=== PATIENT | female | born 1990 | race African-American/Black ===

== ENCOUNTER 2017-07-29 06:48 | Emergency (ER) | payer SELFPAY ==
[2017-07-29 07:38] VITALS: BMI 18.6
--- NOTE | 2017-07-29 08:19 | PDOC ---
History of Present Illness - General Chief Complaint: Vaginal Sxs Stated Complaint: VAGINAL PAIN Time Seen by Provider: 07/29/17 07:47 History Source: Patient Exam Limitations: No Limitations - History of Present Illness Initial Comments: 07/29/17 08:16 27F [id number] (voluntary 2013) presents with 3 days of clear vaginal discharge and discomfort for the past 3 days. Denies dysuria, dyspareunia. Denies itchiness, soreness. One sexual partner, uses condoms consistently. Last period was July 09. No recent antibiotic use. Has had BV before last time was in January. Doesn't take any medication. 07/29/17 08:34 07/29/17 08:56 Past History - Past Medical History Allergies/Adverse Reactions: Allergies Allergy/AdvReac Type Severity Reaction Status Date / Time No Known Allergies Allergy Verified 07/29/17 07:35 Home Medications: Ambulatory Orders Metronidazole 0.75% Vag. Gel [Metrogel 0.75% Vaginal Gel -] 5 applic VG DAILY # 5 tube 07/29/17 Anemia: No Asthma: No Cancer: No Cardiac Disorders: No CVA: No COPD: No CHF: No Dementia: No Diabetes: No GI Disorders: No Disorders: No HTN: No Hypercholesterolemia: No Liver Disease: No Seizures: No Thyroid Disease: No - Surgical History Abdominal Surgery: Yes (ovarian cyst removal) Appendectomy: No Cardiac Surgery: No Cholecystectomy: No Lung Surgery: No Neurologic Surgery: No Orthopedic Surgery: No - Reproductive History (#): 1 Para: 0 Therapeutic (s) & number: Yes Spontaneous : 1 - Immunization History Immunization Up to Date: Yes - Suicide/Smoking/Psychosocial Hx Smoking Status: No Smoking History: Never smoked Have you smoked in the past 12 months: No Number of Cigarettes Smoked Daily: 0 Information on smoking cessation initiated: No Hx Alcohol Use: No Drug/Substance Use Hx: No Substance Use Type: None Hx Substance Use Treatment: No Review of Systems - Review of Systems Able to Perform ROS?: Yes Is the patient limited Congolese proficient: No Constitutional: No: Symptoms Reported HEENTM: No: Symptoms Reported Respiratory: No: Symptoms reported Cardiac (ROS): No: Symptoms Reported ABD/GI: No: Symptoms Reported : No: Burning, Dysuria, Frequency, Hematuria, Incontinence, Pain, Urgency Musculoskeletal: No: Symptoms Reported Integumentary: No: Symptoms Reported Neurological: No: Symptoms reported Psychiatric: No: Anxiety, Depression, Frequent Crying, Stressors Endocrine: No: Symptoms Reported All Other Systems: Reviewed and Negative *Physical Exam - Vital Signs Last Vital Signs Temp Pulse Resp BP Pulse Ox 98.3 F 68 16 116/72 98 07/29/17 07:36 07/29/17 07:36 07/29/17 07:36 07/29/17 07:36 07/29/17 07:36 - Physical Exam General Appearance: Yes: Nourished, Appropriately Dressed. No: Apparent Distress HEENT: positive: EOMI, SHIVANI, Normal ENT Inspection Neck: negative: Tender Respiratory/Chest: positive: Lungs Clear, Normal Breath Sounds. negative: Chest Tender Cardiovascular: positive: Regular Rhythm, Regular Rate, S1, S2 Female Pelvic Exam: positive: normal external exam, cervical os closed, normal adnexa, normal size ovaries, discharge (fishy odor, thin discharge on top of physiological leukorrhea. ). negative: vaginal bleeding Neurologic: positive: Fully Oriented, Alert, Normal Mood/Affect, Normal Response , Motor Strength 5/5 Medical Decision Making - Medical Decision Making 07/29/17 08:47 27F with no pmh and vaginal discomfort, malodorous smell. Pelvic exam performed. Bacterial vaginosis very likely due to malodorous discharge and presentation. Yeast infection unlikely: no foamy white discharge, no itchiness. UA and Upreg pending. Gono and Chlamydia Pending Patient denies HIV testing at this time, will get full physical soon when new insurance kicks in. Secnidazole treatment no available, will treat with metrodinazole. Counseled the patient on using probiotic treatment in addition to metrodinazole to avoid developing yeast infection. . 07/29/17 08:48 *DC/Admit/Observation/Transfer Diagnosis at time of Disposition: BV (bacterial vaginosis) - Discharge Dispostion Disposition: HOME Admit: No - Prescriptions Prescriptions: Metronidazole 0.75% Vag. Gel [Metrogel 0.75% Vaginal Gel -] 5 applic VG DAILY # 5 tube - Referrals Referrals: Katty Lund [Primary Care Provider] - - Patient Instructions Printed Discharge Instructions: DI for Bacterial Vaginosis Additional Instructions: Use metrodinazole cream once a day for 5 days. Use with probiotic to avoid developing yeast infection. Follow up with your primary doctor or OBGYN this week. Come back to Emergency Department for any new, worsening or concerning symptom like abdominal pain, difficulty, burning or painful urination or or if symptoms persist longer than a week. - Post Discharge Activity
--- NOTE | 2017-07-29 09:01 | PDOC ---
Attending Attestation - Resident Resident Name: Andrei Tavares - ED Attending Attestation I have performed the following: I have examined & evaluated the patient, The case was reviewed & discussed with the resident, I agree w/resident's findings & plan, Exceptions are as noted - HPI HPI: 07/29/17 08:57 27F presents with 3 days of white vaginal discharge and discomfort for the past 3 days. Denies abdominal pain, dysuria, dyspareunia, itchiness, soreness. One sexual partner, always uses condoms. LMP 07/09. No recent antibiotic use. Pt reports hx BV and states this feels similar. Denies CP, SOB, fevers, chills. - Physicial Exam PE: 07/29/17 09:00 GENERAL: Awake, alert, and fully oriented, in no acute distress HEAD: No signs of trauma EYES: PERRLA, EOMI, sclera anicteric, conjunctiva clear ENT: Auricles normal inspection, hearing grossly normal, nares patent, oropharynx clear without exudates. Moist mucosa NECK: Normal ROM, supple, no lymphadenopathy, JVD, or masses LUNGS: Breath sounds equal, clear to auscultation bilaterally. No wheezes, and no crackles HEART: Regular rate and rhythm, normal S1 and S2, no murmurs, rubs or gallops ABDOMEN: Soft, nontender, normoactive bowel sounds. No guarding, no rebound. No masses SOCK EXAMINER: agree with resident exam EXTREMITIES: Normal range of motion, no edema. No clubbing or cyanosis. No cords, erythema, or tenderness NEUROLOGICAL: Normal speech, cranial nerves intact, negative pronator drift, 5/ 5 strength in all 4 extremities, normal sensation to light touch in all 4 extremities, normal cerebellar exam, normal gait, normal reflexes and tone SKIN: Warm, Dry, normal turgor, no rashes or lesions noted. - Medical Decision Making 07/29/17 09:00 27-year-old female presents with likely bacterial vaginosis. Will treat and discharge with follow-up with SOCK EXAMINER.
[2017-07-29] MEDS ORDERED: metroNIDAZOLE 0.75% VAGINAL GEL 70 GM TUBE VG ONE (09:14)
[2017-07-29 09:35] LABS: URINE APPEARANCE CLOUDY; URINE BILIRUBIN NEGATIVE (NEGATIVE); URINE BLOOD NEGATIVE (NEGATIVE); URINE COLOR YELLOW; URINE GLUCOSE (UA) NEGATIVE (NEGATIVE); URINE KETONE NEGATIVE (NEGATIVE); URINE NITRITE NEGATIVE (NEGATIVE); URINE PROTEIN NEGATIVE (NEGATIVE); URINE UROBILINOGEN NEGATIVE mg/dL (0.2-1.0)
[2017-07-29 09:59] VITALS: BP 115/56; PULSE 75; TEMP 97.8
[2017-07-29 11:54] LABS: URINE LEUK ESTERASE 1+ (NEGATIVE)
[2017-07-29 12:09] LABS: URINE BACTERIA MODERATE /hpf (NEGATIVE); URINE RBC 0-3 /hpf (0-3)
== END 2017-07-29 09:59 | disposition home or self-care (01) ==
LOC: JER 06:48
DX: N76.0 Acute vaginitis (principal); B96.89 Other specified bacterial agents as the cause of diseases classified elsewhere
CPT/HCPCS: 36415; 81003; 81015; 84703; 87491; 87591; 99282-25

== ENCOUNTER 2017-12-28 21:40 | Emergency (ER) | payer SELFPAY ==
--- NOTE | 2017-12-28 21:56 | PDOC ---
Rapid Medical Evaluation Time Seen by Provider: 12/28/17 21:52 Medical Evaluation: Allergies Allergy/AdvReac Type Severity Reaction Status Date / Time No Known Allergies Allergy Verified 07/29/17 07:35 12/28/17 21:52 I have performed a brief in-person evaluation of this patient. The patient presents with a chief complaint of: breasts sore, "unusual discharge , clearish, white", RLQ pain, LMP 3 weeks ago, "feels like a UTI". hx L ovarian cyst removal Pertinent physical exam findings: well appearing, VSS, no tenderness to lower abdomen I have ordered the following: urine, ct/gc The patient will proceed to the ED for further evaluation. Discharge Disposition - Diagnosis Suprapubic discomfort - Referrals - Patient Instructions - Post Discharge Activity
[2017-12-28 22:01] VITALS: BP 120/52; PULSE 89; TEMP 98.3; BMI 18.2
[2017-12-28 23:10] LABS: URINE APPEARANCE SLCLOUDY; URINE BILIRUBIN NEGATIVE (<2.0 mg/dL); URINE BLOOD NEGATIVE (NEGATIVE); URINE COLOR LTYELLOW; URINE GLUCOSE (UA) NEGATIVE (NEGATIVE); URINE KETONE NEGATIVE (NEGATIVE); URINE NITRITE NEGATIVE (NEGATIVE); URINE PROTEIN NEGATIVE (NEGATIVE); URINE UROBILINOGEN NEGATIVE mg/dL (0.2-1.0)
[2017-12-28 23:12] LABS: URINE LEUK ESTERASE 3+ (NEGATIVE)
[2017-12-28 23:14] LABS: EPI CELLS RARE /HPF (FEW); URINE BACTERIA RARE /hpf (NONE SEEN); URINE MUCUS RARE
[2017-12-29] MEDS ORDERED: CEPHALEXIN MONOHYDRATE 500 MG CAPSULE (UD) PO ONE (00:06)
[2017-12-29] MEDS ORDERED: metroNIDAZOLE 250 MG TABLET PO ONE (00:06)
[2017-12-29] MEDS ORDERED: FLUCONAZOLE 50 MG TABLET PO ONE (00:06)
--- NOTE | 2017-12-29 00:06 | PDOC ---
History of Present Illness - General Chief Complaint: Pain Stated Complaint: ABD PAIN Time Seen by Provider: 12/28/17 21:52 History Source: Patient Exam Limitations: No Limitations - History of Present Illness Initial Comments: 27 yo F history prior UTI, bacterial vaginosis, yeast infection presents with white vaginal discharge, pressure after urination, and foul-smelling urine for the past 2 days. Denies fever, chills. She states she does not have vaginal itching as with prior episodes with yeast infections. She states the discharge is similar to BV she has had in the past. She states she has not been sexually active for months, and no unprotected encounters. No yellow discharge, no pelvic pain. Past History - Past Medical History Allergies/Adverse Reactions: Allergies Allergy/AdvReac Type Severity Reaction Status Date / Time No Known Allergies Allergy Verified 12/28/17 21:57 Home Medications: Ambulatory Orders Cephalexin Monohydrate [Keflex -] 500 mg PO BID #14 capsule 12/29/17 metroNIDAZOLE [Flagyl -] 500 mg PO BID #14 tablet 12/29/17 Anemia: No Asthma: No Cancer: No Cardiac Disorders: No CVA: No COPD: No CHF: No Dementia: No Diabetes: No GI Disorders: No Disorders: No HTN: No Hypercholesterolemia: No Liver Disease: No Seizures: No Thyroid Disease: No Other medical history: Pt denies - Surgical History Abdominal Surgery: Yes (L ovarian cyst removal) Appendectomy: No Cardiac Surgery: No Cholecystectomy: No Lung Surgery: No Neurologic Surgery: No Orthopedic Surgery: No - Reproductive History (#): 1 Para: 0 Therapeutic (s) & number: Yes Spontaneous : 1 - Immunization History Immunization Up to Date: Yes - Suicide/Smoking/Psychosocial Hx Smoking Status: No Smoking History: Never smoked Have you smoked in the past 12 months: No Number of Cigarettes Smoked Daily: 0 Information on smoking cessation initiated: No Hx Alcohol Use: No Drug/Substance Use Hx: No Substance Use Type: None Hx Substance Use Treatment: No Review of Systems - Review of Systems Able to Perform ROS?: Yes Comments:: GENERAL/CONSTITUTIONAL: No fever or chills. No weakness. HEAD, EYES, EARS, NOSE AND THROAT: No change in vision. No ear pain or discharge. No sore throat. CARDIOVASCULAR: No chest pain or shortness of breath. RESPIRATORY: No cough, wheezing, or hemoptysis. GASTROINTESTINAL: No nausea, vomiting, diarrhea or constipation. GENITOURINARY: +Dysuria. No frequency. +Malodorous urine. MUSCULOSKELETAL: No joint or muscle swelling or pain. No neck or back pain. SKIN: No rash NEUROLOGIC: No headache, vertigo, loss of consciousness, or change in strength/ sensation. ENDOCRINE: No increased thirst. No abnormal weight change. HEMATOLOGIC/LYMPHATIC: No anemia, easy bleeding, or history of blood clots. ALLERGIC/IMMUNOLOGIC: No hives or skin allergy. *Physical Exam - Vital Signs Last Vital Signs Temp Pulse Resp BP Pulse Ox 98.3 F 89 20 120/52 100 12/28/17 21:58 12/28/17 21:58 12/28/17 21:58 12/28/17 21:58 12/28/17 21:58 - Physical Exam Comments: GENERAL: Awake, alert, and fully oriented, in no acute distress HEAD: No signs of trauma EYES: PERRLA, EOMI, sclera anicteric, conjunctiva clear ENT: Auricles normal inspection, hearing grossly normal, nares patent, oropharynx clear without exudates. Moist mucosa NECK: Normal ROM, supple, no lymphadenopathy, JVD, or masses LUNGS: Breath sounds equal, clear to auscultation bilaterally. No wheezes, and no crackles HEART: Regular rate and rhythm, normal S1 and S2, no murmurs, rubs or gallops ABDOMEN: Soft, nontender, normoactive bowel sounds. No guarding, no rebound. No masses EXTREMITIES: Normal range of motion, no edema. No clubbing or cyanosis. No cords, erythema, or tenderness NEUROLOGICAL: Cranial nerves II through XII grossly intact. Normal speech, normal gait SKIN: Warm, Dry, normal turgor, no rashes or lesions noted. : No external lesions. +Thin white discharge with slight irritation of the vaginal wall. ED Treatment Course - ADDITIONAL ORDERS Additional order review: Laboratory Results 12/28/17 12/28/17 22:41 22:41 Urine Color Ltyellow Urine Appearance Slcloudy Urine pH 5.0 Ur Specific [place] 1.012 Urine Protein Negative Urine Glucose (UA) Negative Urine Ketones Negative Urine Blood Negative Urine Nitrite Negative Urine Bilirubin Negative Urine Urobilinogen Negative Ur Leukocyte Esterase 3+ H Urine WBC (Auto) 21 Urine RBC (Auto) 1 Ur Epithelial Cells Rare Urine Bacteria Rare Urine Mucus Rare Urine HCG, Qual Negative Medical Decision Making - Medical Decision Making Sxs more consistent with BV than with yeast, however, she will require abx for both BV and UTI, and thus will give her diflucan at the same time (antibiotics usually give her yeast infections). Stable for DC home. *DC/Admit/Observation/Transfer Diagnosis at time of Disposition: Bacterial vaginosis UTI (urinary tract infection) Qualifiers: Urinary tract infection type: acute cystitis Hematuria presence: without hematuria Qualified Code(s): N30.00 - Acute cystitis without hematuria - Discharge Dispostion Disposition: HOME Condition at time of disposition: Stable Admit: No - Prescriptions Prescriptions: Cephalexin Monohydrate [Keflex -] 500 mg PO BID #14 capsule metroNIDAZOLE [Flagyl -] 500 mg PO BID #14 tablet - Referrals - Patient Instructions Printed Discharge Instructions: DI for Urinary Tract Infection (UTI), DI for Bacterial Vaginosis - Post Discharge Activity
[2017-12-29] MEDS ORDERED: FLUCONAZOLE 100 MG TABLET (UD) ONE (00:28)
[2017-12-29] MEDS ORDERED: FLUCONAZOLE 100 MG TABLET (UD) PO ONE (00:30)
== END 2017-12-29 00:49 | disposition home or self-care (01) ==
LOC: JER 21:40 → JERFT 21:40 → JER 12-29 00:49
DX: N30.00 Acute cystitis without hematuria (principal); N76.0 Acute vaginitis; B96.89 Other specified bacterial agents as the cause of diseases classified elsewhere
CPT/HCPCS: 36415; 81003; 81015; 84703; 87086; 87491; 87591; 99281-25

== ENCOUNTER 2018-02-14 01:22 | Emergency (ER) | payer SELFPAY | END 2018-02-14 02:10 | disposition home or self-care (01) | LOC: JER 01:22 | DX: J34.89 Other specified disorders of nose and nasal sinuses (principal) | CPT/HCPCS: 99281-25 ==

== ENCOUNTER 2018-07-02 14:00 | Emergency (ER) | payer SELFPAY ==
[2018-07-02 14:12] VITALS: BP 139/76; PULSE 90; TEMP 98.5; BMI 18.4
--- NOTE | 2018-07-02 15:44 | PDOC ---
*Physical Exam - Vital Signs Last Vital Signs Temp Pulse Resp BP Pulse Ox 98.5 F 90 18 139/76 99 07/02/18 14:03 07/02/18 14:03 07/02/18 14:03 07/02/18 14:03 07/02/18 14:03 - Physical Exam HEENT: positive: Muffled/Hoarse voice Medical Decision Making - Medical Decision Making 07/02/18 15:41 Vital Signs Temp Pulse Resp BP Pulse Ox 98.5 F 90 18 139/76 99 07/02/18 14:03 07/02/18 14:03 07/02/18 14:03 07/02/18 14:03 07/02/18 14:03 Pt seen by the Advanced Practice Provider under my direct supervision Ancillary studies reviewed I agree with plan as outlined by the Advanced Practice Provider TARA Caceres *DC/Admit/Observation/Transfer Diagnosis at time of Disposition: BV (bacterial vaginosis), Diarrhea - Discharge Dispostion Disposition: HOME Condition at time of disposition: Unchanged/Unknown - Prescriptions Prescriptions: metroNIDAZOLE [Metronidazole] 500 mg PO BID #14 tablet - Referrals - Patient Instructions Printed Discharge Instructions: DI for Bacterial Vaginosis Additional Instructions: Please take medication as prescribed. Since you have refused to have your blood work I will not be treating the diarrhea and recommended his symptoms continue or worsen to go back to the ER and consider a workup - Post Discharge Activity
[2018-07-02 16:03] LABS: URINE APPEARANCE SLCLOUDY; URINE BILIRUBIN NEGATIVE (<2.0 mg/dL); URINE COLOR YELLOW; URINE GLUCOSE (UA) NEGATIVE (NEGATIVE); URINE KETONE NEGATIVE (NEGATIVE); URINE LEUK ESTERASE NEGATIVE (NEGATIVE); URINE NITRITE NEGATIVE (NEGATIVE); URINE PROTEIN NEGATIVE (NEGATIVE); URINE UROBILINOGEN NEGATIVE mg/dL (0.2-1.0)
[2018-07-02 16:04] LABS: HCG,QUALITATIVE URINE Negative
--- NOTE | 2018-07-02 17:41 | PDOC ---
History of Present Illness - General Chief Complaint: Pain Stated Complaint: ABD PAIN Time Seen by Provider: 07/02/18 14:09 History Source: Patient Exam Limitations: No Limitations - History of Present Illness Initial Comments: 07/02/18 16:04 28-year-old Female presents to ED with complaints of diarrhea intermittently for the past 4 days. Patient states every time she eats or drinks something within minutes she is running to the bathroom stating she is having brown watery stool. Patient also states increased gas without fever, chills or abdominal pain. Patient does state that her crit was 10 days ago. patient states went to [facility] and [place] but denied eating the food while on the [facility]. Patient also states had used a douche after her menstrual cycle 4 days ago and now states since yesterday has had a fishy hinojosa discharge from her vagina. Patient denies urinary complaints and states has had bacterial vaginosis before and describes similar symptoms 07/02/18 18:06 Timing/Duration: intermittent Severity: mild Associated Symptoms: reports: other Past History - Travel Traveled outside of the country in the last 30 days: No - Past Medical History Allergies/Adverse Reactions: Allergies Allergy/AdvReac Type Severity Reaction Status Date / Time No Known Allergies Allergy Verified 07/02/18 14:03 Home Medications: Ambulatory Orders metroNIDAZOLE [Metronidazole] 500 mg PO BID #14 tablet 07/02/18 Anemia: No Asthma: No Cancer: No Cardiac Disorders: No CVA: No COPD: No CHF: No Dementia: No Diabetes: No GI Disorders: No Disorders: No HTN: No Hypercholesterolemia: No Liver Disease: No Seizures: No Thyroid Disease: No - Surgical History Abdominal Surgery: Yes (L ovarian cyst removal) Appendectomy: No Cardiac Surgery: No Cholecystectomy: No Lung Surgery: No Neurologic Surgery: No Orthopedic Surgery: No - Reproductive History (#): 1 Para: 0 Therapeutic (s) & number: Yes Spontaneous : 1 - Immunization History Immunization Up to Date: Yes - Suicide/Smoking/Psychosocial Hx Smoking Status: No Smoking History: Never smoked Have you smoked in the past 12 months: No Number of Cigarettes Smoked Daily: 0 Hx Alcohol Use: No Drug/Substance Use Hx: No Substance Use Type: None Hx Substance Use Treatment: No Patient Lives Alone: No Lives with/in: parents Review of Systems - Review of Systems Able to Perform ROS?: No Constitutional: No: Symptoms Reported HEENTM: No: Symptoms Reported Respiratory: No: Symptoms reported Cardiac (ROS): No: Symptoms Reported ABD/GI: Yes: Diarrhea : Yes: Discharge Musculoskeletal: No: Symptoms Reported Integumentary: No: Symptoms Reported Neurological: No: Symptoms reported *Physical Exam - Vital Signs Last Vital Signs Temp Pulse Resp BP Pulse Ox 98.5 F 90 18 139/76 99 07/02/18 14:03 07/02/18 14:03 07/02/18 14:03 07/02/18 14:03 07/02/18 14:03 - Physical Exam General Appearance: Yes: Nourished, Appropriately Dressed. No: Apparent Distress HEENT: positive: EOMI. negative: Pale Conjunctivae Neck: positive: Normal Thyroid, Supple Respiratory/Chest: positive: Lungs Clear, Normal Breath Sounds. negative: Respiratory Distress, Accessory Muscle Use Cardiovascular: positive: Regular Rhythm, Regular Rate. negative: Murmur Female Pelvic Exam: positive: cervical os closed, discharge (hinojosa discharge with fishy odor). negative: CMT, adnexal tenderness, vaginal bleeding Gastrointestinal/Abdominal: positive: Normal Bowel Sounds, Soft. negative: Distended, Tenderness Musculoskeletal: negative: CVA Tenderness Integumentary: positive: Normal Color, Warm, Moist Neurologic: positive: Motor Strength 5/5 (ambulatory) ED Treatment Course - ADDITIONAL ORDERS Additional order review: Laboratory Results 07/02/18 15:45 Urine Color Yellow Urine Appearance Slcloudy Urine pH 6.0 Ur Specific [place] 1.025 Urine Protein Negative Urine Glucose (UA) Negative Urine Ketones Negative Urine Blood Negative Urine Nitrite Negative Urine Bilirubin Negative Urine Urobilinogen Negative Ur Leukocyte Esterase Negative Urine HCG, Qual Negative Medical Decision Making - Medical Decision Making 07/02/18 16:08 CC: diarrhea x 4 days, vag discharge since yesterday Exam: + bacterial vaginosis , no other findings Plan: Ua, hcg, urine, u cx, gc/chlamydia, cbc, comp, stool cx ( secondary to travel) 07/02/18 17:10 Pt refusing blood work and stool collection, stating she is scared of needles and does not want to give a stool specimen 07/02/18 18:11 Laboratory Tests 07/02/18 07/02/18 15:45 17:23 Urine Ketones Negative Urine Nitrite Negative Urine Urobilinogen Negative Ur Leukocyte Esterase Negative Urine HCG, Qual Negative C. trachomatis (KAYLI) Pending N. gonorrhoeae (KAYLI) Pending Pt will be discharged home with flagyl for tx of bv. Pt understands by refusing stool specimen and blood work, I will be unable to provide information or tx for her s/s. *DC/Admit/Observation/Transfer Diagnosis at time of Disposition: BV (bacterial vaginosis), Diarrhea - Discharge Dispostion Disposition: HOME Condition at time of disposition: Unchanged/Unknown - Prescriptions Prescriptions: metroNIDAZOLE [Metronidazole] 500 mg PO BID #14 tablet - Referrals - Patient Instructions Printed Discharge Instructions: DI for Bacterial Vaginosis Additional Instructions: Please take medication as prescribed. Since you have refused to have your blood work I will not be treating the diarrhea and recommended his symptoms continue or worsen to go back to the ER and consider a workup - Post Discharge Activity
== END 2018-07-02 17:54 | disposition home or self-care (01) ==
LOC: JER 14:00
DX: N76.0 Acute vaginitis (principal); B96.89 Other specified bacterial agents as the cause of diseases classified elsewhere; R19.7 Diarrhea, unspecified
CPT/HCPCS: 36415; 81003; 84703; 87086; 87491; 87591; 99281-25

== ENCOUNTER 2018-11-05 16:41 | Emergency (ER) | payer OTHER ==
[2018-11-05 16:48] VITALS: BP 114/80; PULSE 106; TEMP 98.4; BMI 18.1
--- NOTE | 2018-11-05 16:51 | PDOC ---
Rapid Medical Evaluation Chief Complaint: Vaginal Bleeding Time Seen by Provider: 11/05/18 16:45 Medical Evaluation: Allergies Allergy/AdvReac Type Severity Reaction Status Date / Time No Known Allergies Allergy Verified 07/16/18 23:10 Vital Signs Temp Pulse Resp BP Pulse Ox 98.4 F 106 H 16 114/80 100 11/05/18 16:44 11/05/18 16:44 11/05/18 16:44 11/05/18 16:44 11/05/18 16:44 11/05/18 16:50 I have performed a brief in-person evaluation of this patient. The patient presents with a chief complaint of: 9wks with vaginal bleeding since this afternoon using 1 pad. Pertinent physical exam findings: A&O x 3 I have ordered the following: CBC,CMP, T&S, beta hcg. transvaginal US The patient will proceed to the ED for further evaluation Discharge Disposition - Diagnosis Vaginal bleeding during - Discharge Dispostion Condition at time of disposition: Stable - Referrals - Patient Instructions - Post Discharge Activity
--- NOTE | 2018-11-05 17:03 | PDOC ---
History of Present Illness - General Chief Complaint: Vaginal Bleeding Stated Complaint: Vaginal Bleeding Time Seen by Provider: 11/05/18 16:45 - History of Present Illness Initial Comments: 28 year old [id number] currently 9 weeks by US presenting with lower abdominal pain, vaginal bleeding, clot passage, and discomfort for the past 2 days. States that she took a two stage medical medication which she could not recall the name of at the time. She took the second pill this morning and noted significant pelvic pain, bleeding and cramping. She is concerned because the bleeding and pain are much worse than the previous medical 11/05/18 18:29. Denies fevers, chills, nausea, vomiting, diarrhea, lightheadedness, or other symptoms. Past History - Past Medical History Allergies/Adverse Reactions: Allergies Allergy/AdvReac Type Severity Reaction Status Date / Time No Known Allergies Allergy Verified 07/16/18 23:10 Home Medications: Ambulatory Orders NK [No Known Home Medication] 07/16/18 Anemia: No Asthma: No Cancer: No Cardiac Disorders: No CVA: No COPD: No CHF: No Dementia: No Diabetes: No GI Disorders: No Disorders: No HTN: No Hypercholesterolemia: No Liver Disease: No Seizures: No Thyroid Disease: No - Surgical History Abdominal Surgery: Yes (L ovarian cyst removal) Appendectomy: No Cardiac Surgery: No Cholecystectomy: No Lung Surgery: No Neurologic Surgery: No Orthopedic Surgery: No - Reproductive History (#): 1 Para: 0 Therapeutic (s) & number: Yes Spontaneous : 1 - Immunization History Immunization Up to Date: Yes - Suicide/Smoking/Psychosocial Hx Smoking Status: No Smoking History: Never smoked Have you smoked in the past 12 months: No Number of Cigarettes Smoked Daily: 0 Hx Alcohol Use: No Drug/Substance Use Hx: No Substance Use Type: None Hx Substance Use Treatment: No Review of Systems - Review of Systems Constitutional: No: Chills, Diaphoresis, Fever HEENTM: No: Eye Pain, Blurred Vision, Tearing Respiratory: No: Cough, Orthopnea, Shortness of Breath Cardiac (ROS): No: Chest Pain, Edema, Irregular Heart Rate, Lightheadedness, Palpitations ABD/GI: Yes: Abdominal cramping. No: Constipated, Diarrhea, Nausea, Poor Appetite, Vomiting : Yes: Hematuria. No: Burning, Dysuria Musculoskeletal: No: Back Pain, Joint Pain, Joint Swelling Integumentary: No: Bruising, Erythema, Flushing Neurological: No: Headache, Numbness, Paresthesia Psychiatric: No: Anxiety, Depression Hematologic/Lymphatic: No: Anemia, Blood Clots, Easy Bleeding *Physical Exam - Vital Signs Last Vital Signs Temp Pulse Resp BP Pulse Ox 98.4 F 106 H 16 114/80 100 11/05/18 16:44 11/05/18 16:44 11/05/18 16:44 11/05/18 16:44 11/05/18 16:44 - Physical Exam General Appearance: Yes: Nourished, Appropriately Dressed. No: Apparent Distress HEENT: positive: EOMI, SHIVANI, Normal ENT Inspection, Normal Voice Neck: positive: Trachea midline, Normal Thyroid, Supple. negative: Tender, Rigid Respiratory/Chest: positive: Lungs Clear, Normal Breath Sounds. negative: Chest Tender, Respiratory Distress, Accessory Muscle Use Cardiovascular: positive: Regular Rhythm, Regular Rate Female Pelvic Exam: positive: vaginal bleeding (dried blood in the vaginal vault with small amoutn of material in the slightly open cervical os. No active source of bleeding). negative: normal external exam Gastrointestinal/Abdominal: positive: Normal Bowel Sounds, Flat, Soft. negative : Tender Lymphatic: negative: Adenopathy, Tenderness Musculoskeletal: positive: Normal Inspection. negative: Decreased Range of Motion Extremity: positive: Normal Capillary Refill, Normal Inspection, Normal Range of Motion. negative: Tender Integumentary: positive: Normal Color, Dry, Warm Neurologic: positive: Fully Oriented, Alert, Normal Mood/Affect, Normal Response , Motor Strength 5/5 Moderate Sedation - Procedure Monitoring Vital Signs: Procedure Monitoring Vital Signs Temperature 98.4 F 11/05/18 16:44 Pulse Rate 106 H 11/05/18 16:44 Respiratory Rate 16 11/05/18 16:44 Blood Pressure 114/80 11/05/18 16:44 O2 Sat by Pulse Oximetry (%) 100 11/05/18 16:44 ED Treatment Course - LABORATORY CBC & Chemistry Diagram: 11/05/18 17:12 11/05/18 17:12 Medical Decision Making - Medical Decision Making 28 year odl female with 9 week that she states was confirmed on US a few weeks ago preenting with vaginal bleeding after ingesting a two dose medical medication. States that her pain and bleeding increased after taking this morning's second dose. Her vaginal exam demonstrates possible POC in the OS. Labs stable. Blood type A+. US demonstrating "missed AB". However, her OS was open on our exam with products at the margin so we believe they will pass. Some material was passed after the ultrasound but it was not sent to pathology because this was an expected . We will discharge with strict return precautions and follow up with Dr. Velásquez tomorrow. 11/05/18 21:46 *DC/Admit/Observation/Transfer Diagnosis at time of Disposition: Miscarriage - Discharge Dispostion Disposition: HOME Condition at time of disposition: Stable Decision to Admit order: No - Referrals Referrals: Jesus Pollock MD [Staff Physician] - - Patient Instructions Printed Discharge Instructions: DI for Miscarriage Additional Instructions: You are having a miscarriage. It is very important that you follow up with Dr. Pollock tomorrow. The rest of the should pass within the next day. If you get any fevers, chills, or worsening pain, please return to the ED immediately. - Post Discharge Activity
[2018-11-05 17:22] LABS: BASO % 1.1 % (0-2.0); EOS % 0.5 % (0-4.5); HEMATOCRIT 39.5 % (32.4-45.2); HEMOGLOBIN 13.5 GM/dL (10.7-15.3); LYMPH % 25.9 % (8-40); MCH 30.3 pg (25.7-33.7); MCHC 34.2 g/dl (32.0-36.0); MEAN CELL VOLUME 88.5 fl (80-96); MEAN PLT VOLUME 7.7 fl (7.5-11.1); MONO % 6.9 % (3.8-10.2); NEUT % 65.6 % (42.8-82.8); PLATELET COUNT 307 K/MM3 (134-434); RBC 4.47 M/mm3 (3.60-5.2); WHITE BLOOD COUNT 7.7 K/mm3 (4.0-10.0)
[2018-11-05 18:07] LABS: ALBUMIN 3.8 g/dl (3.4-5.0); ALK PHOS 61 U/L (45-117); ANION GAP 8 MMOL/L (8-16); BILIRUBIN,TOTAL 0.4 mg/dL (0.2-1); BLOOD UREA NITROGEN 9 mg/dL (7-18); CALCIUM 8.6 mg/dL (8.5-10.1); CHLORIDE 102 mmol/L (98-107); CO2 26 mmol/L (21-32); CREATININE 0.8 mg/dL (0.55-1.3); GLUCOSE,RANDOM 79 mg/dL (74-106); POTASSIUM 3.5 mmol/L (3.5-5.1); SGOT/AST 20 U/L (15-37); SGPT/ALT 18 U/L (13-61); SODIUM 135 mmol/L (136-145)
--- NOTE | 2018-11-05 18:07 | PDOC ---
Attending Attestation - HPI HPI: 11/05/18 18:34 The patient is a 28 year old female with a significant PMH of UTIs, bacterial vaginosis, and prior yeast infections who presents to the emergency department with vaginal bleeding for 2 days. The patient reports that she took the pill yesterday by which she subsequently began to experience these symptoms. The patient reports that she has had similar episode in the past but, this episode is more intense. It is notes that the patients IUP was 9 weeks and HCG [id number]. She denies any other symptoms or complaints. <Edil Sharpe - Last Filed: 11/05/18 18:34> - Resident Resident Name: Waldemar Whiting - ED Attending Attestation I have performed the following: I have examined & evaluated the patient, The case was reviewed & discussed with the resident, I agree w/resident's findings & plan, Exceptions are as noted - Physicial Exam PE: 11/05/18 18:54 Reviewed Residents PE - Medical Decision Making 11/05/18 19:05 28 years old started on methotrexate yesterday for elective presents today with cramping and clots We'll check labs type and screen ultrasound and reassessed to follow-up ultrasound and dispel patient <Rex Johns - Last Filed: 11/05/18 19:05> Attestations - Attestations 11/05/18 18:34 Documentation prepared by Edil Sharpe, acting as medical staff coordinator for Rex Johns MD. <Edil Sharpe - Last Filed: 11/05/18 18:34>
[2018-11-05] MEDS ORDERED: ACETAMINOPHEN 500 MG TABLET (FP) PO ONE (18:13)
[2018-11-05] MEDS ORDERED: ACETAMINOPHEN 325 MG TABLET (FP) ONE (18:47)
== END 2018-11-05 22:01 | disposition home or self-care (01) ==
LOC: JER 16:41
DX: O26.891 Other specified pregnancy related conditions, first trimester (principal); O02.1 Missed abortion; Z3A.09 9 weeks gestation of pregnancy
CPT/HCPCS: 36415; 76817-TC; 80053; 84702; 85025; 86850; 86900; 86901; 99283-25

== ENCOUNTER 2019-03-19 15:43 | Emergency (ER) | payer OTHER ==
[2019-03-19 16:08] VITALS: BP 111/67; PULSE 88; TEMP 98.6; BMI 18.6
--- NOTE | 2019-03-19 16:08 | PDOC ---
Rapid Medical Evaluation Chief Complaint: Vaginal Sxs Time Seen by Provider: 03/19/19 16:04 Medical Evaluation: Allergies Allergy/AdvReac Type Severity Reaction Status Date / Time No Known Allergies Allergy Verified 07/16/18 23:10 03/19/19 16:04 I have performed a brief in-person evaluation of this patient. The patient presents with a chief complaint of: itching/ + yeast infections , LMP 12/10/18, no care yet Pertinent physical exam findings: appears uncomfortable - I have ordered the following: UA / Chlamyd/GC The patient will proceed to the ED for further evaluation. 03/19/19 16:05 03/19/19 16:06 Discharge Disposition - Diagnosis Vaginal symptom - Referrals Referrals: Katty Lund [Primary Care Provider] - - Patient Instructions - Post Discharge Activity
--- NOTE | 2019-03-19 16:26 | PDOC ---
History of Present Illness - General Chief Complaint: Vaginal Sxs Stated Complaint: Urinary Problem Time Seen by Provider: 03/19/19 16:04 History Source: Patient Exam Limitations: Clinical Condition - History of Present Illness Initial Comments: 03/19/19 16:26 Patient 12 weeks with no medical history present with complaint of 4 day history of white vaginal discharge which she believes is vaginal yeast infection. Patient reported internal vaginal itching. Denies vaginal bleeding or any other symptoms. Timing/Duration: other (4 days) Past History - Past Medical History Allergies/Adverse Reactions: Allergies Allergy/AdvReac Type Severity Reaction Status Date / Time No Known Allergies Allergy Verified 07/16/18 23:10 Home Medications: Ambulatory Orders Terconazole 80 mg VG HS 3 Days #3 supp.vag 03/19/19 Anemia: No Asthma: No Cancer: No Cardiac Disorders: No CVA: No COPD: No CHF: No Dementia: No Diabetes: No GI Disorders: No Disorders: No HTN: No Hypercholesterolemia: No Liver Disease: No Seizures: No Thyroid Disease: No - Surgical History Abdominal Surgery: Yes (L ovarian cyst removal) Appendectomy: No Cardiac Surgery: No Cholecystectomy: No Lung Surgery: No Neurologic Surgery: No Orthopedic Surgery: No - Reproductive History (#): 1 Para: 0 Therapeutic (s) & number: Yes Spontaneous : 1 - Immunization History Immunization Up to Date: Yes - Suicide/Smoking/Psychosocial Hx Smoking Status: No Smoking History: Never smoked Have you smoked in the past 12 months: No Number of Cigarettes Smoked Daily: 0 Information on smoking cessation initiated: No Hx Alcohol Use: No Drug/Substance Use Hx: No Substance Use Type: None Hx Substance Use Treatment: No Review of Systems - Review of Systems Able to Perform ROS?: Yes Is the patient limited Citizen [place] proficient: No Constitutional: No: Malaise, Weakness HEENTM: No: Symptoms Reported Respiratory: No: Symptoms reported Cardiac (ROS): No: Symptoms Reported ABD/GI: No: Symptoms Reported : Yes: Symptoms Reported, See HPI, Discharge (white thick vaginal discharge). No: Burning, Dysuria, Frequency, Flank Pain, Pain, Urgency, Other (vaginal bleeding) Musculoskeletal: No: Symptoms Reported Integumentary: No: Symptoms Reported Neurological: No: Symptoms reported All Other Systems: Reviewed and Negative *Physical Exam - Vital Signs Last Vital Signs Temp Pulse Resp BP Pulse Ox 98.6 F 88 18 111/67 100 03/19/19 16:04 03/19/19 16:04 03/19/19 16:04 03/19/19 16:04 03/19/19 16:04 - Physical Exam General Appearance: Yes: Nourished, Appropriately Dressed. No: Apparent Distress HEENT: positive: Normal ENT Inspection Neck: positive: Supple Respiratory/Chest: negative: Respiratory Distress, Accessory Muscle Use Female Pelvic Exam: positive: normal external exam, cervical os closed. negative: CMT, vaginal bleeding Gastrointestinal/Abdominal: positive: Flat. negative: Tender Musculoskeletal: positive: Normal Inspection Extremity: positive: Normal Inspection Integumentary: positive: Normal Color Neurologic: positive: Fully Oriented, Alert, Normal Mood/Affect, Normal Response Medical Decision Making - Medical Decision Making 03/19/19 16:28 Patient 12 weeks with no medical history present with complaint of 4 day history of white vaginal discharge which she believes is vaginal yeast infection. Patient reported internal vaginal itching. Denies vaginal bleeding or any other symptoms. Patient will be discharged home on terconazole vaginal suppository for 3 days given with OB follow-up in 3-5 days for reassessment. *DC/Admit/Observation/Transfer Diagnosis at time of Disposition: 12 weeks gestation of Vaginitis Qualifiers: Chronicity: acute Qualified Code(s): N76.0 - Acute vaginitis - Discharge Dispostion Disposition: HOME Condition at time of disposition: Stable Decision to Admit order: No - Prescriptions Prescriptions: Terconazole 80 mg VG HS 3 Days #3 supp.vag - Referrals Referrals: Katty Lund [Primary Care Provider] - - Patient Instructions Printed Discharge Instructions: DI for Vaginal Yeast Infection Additional Instructions: Take medications as prescribed. Follow-up with your OB in 3-5 days for reassessment of vaginal discharge - Post Discharge Activity
[2019-03-19 17:18] LABS: HYALINE CASTS 15 /lpf (0-8); URINE APPEARANCE CLEAR; URINE BACTERIA 1085.9 /hpf (NEGATIVE); URINE BILIRUBIN NEGATIVE (NEGATIVE); URINE COLOR YELLOW; URINE GLUCOSE (UA) NEGATIVE (NEGATIVE); URINE KETONE NEGATIVE (NEGATIVE); URINE LEUK ESTERASE 3+ (NEGATIVE); URINE NITRITE NEGATIVE (NEGATIVE); URINE PROTEIN NEGATIVE (NEGATIVE); URINE RBC 3 /hpf (0-4); URINE WBC 62 /hpf (0-5)
== END 2019-03-19 16:26 | disposition home or self-care (01) ==
LOC: JERFT 15:43
DX: N76.0 Acute vaginitis (principal); O26.891 Other specified pregnancy related conditions, first trimester; Z3A.12 12 weeks gestation of pregnancy
CPT/HCPCS: 36415; 81003; 87491; 87591; 99281-25

== ENCOUNTER 2019-04-02 14:40 | Emergency (ER) | payer OTHER ==
--- NOTE | 2019-04-02 14:50 | PDOC ---
Rapid Medical Evaluation Time Seen by Provider: 04/02/19 14:48 Medical Evaluation: Allergies Allergy/AdvReac Type Severity Reaction Status Date / Time No Known Allergies Allergy Verified 07/16/18 23:10 04/02/19 14:50 I have performed a brief in-person evaluation of this patient. The patient presents with a chief complaint of: 15 weeks w/ vaginal discharge. No abd pain, vag bleed or dysuria. Of note, pt p/w same 03/19/19 and had neg Gc and chlamydia. Was tx for possible rajni vaginitis Pertinent physical exam findings:stable I have ordered the following:ua/cx The patient will proceed to the ED for further evaluation. Discharge Disposition - Diagnosis Vaginal discharge - Referrals - Patient Instructions - Post Discharge Activity
[2019-04-02 15:01] VITALS: BP 134/69; PULSE 86; TEMP 98; BMI 24.2
--- NOTE | 2019-04-02 15:37 | PDOC ---
History of Present Illness - General Chief Complaint: Vaginal Sxs Stated Complaint: 15WKS PREG/VAG.DISCHARGE Time Seen by Provider: 04/02/19 14:48 History Source: Patient Exam Limitations: No Limitations Past History - Past Medical History Allergies/Adverse Reactions: Allergies Allergy/AdvReac Type Severity Reaction Status Date / Time No Known Allergies Allergy Verified 07/16/18 23:10 Home Medications: Ambulatory Orders NK [No Known Home Medication] 04/02/19 Anemia: No Asthma: No Cancer: No Cardiac Disorders: No CVA: No COPD: No CHF: No Dementia: No Diabetes: No GI Disorders: No Disorders: No HTN: No Hypercholesterolemia: No Liver Disease: No Seizures: No Thyroid Disease: No - Surgical History Abdominal Surgery: Yes (L ovarian cyst removal) Appendectomy: No Cardiac Surgery: No Cholecystectomy: No Lung Surgery: No Neurologic Surgery: No Orthopedic Surgery: No - Reproductive History (#): 1 Para: 0 Therapeutic (s) & number: Yes Spontaneous : 1 - Immunization History Immunization Up to Date: Yes - Suicide/Smoking/Psychosocial Hx Smoking Status: No Smoking History: Never smoked Have you smoked in the past 12 months: No Number of Cigarettes Smoked Daily: 0 Information on smoking cessation initiated: No Hx Alcohol Use: No Drug/Substance Use Hx: No Substance Use Type: None Hx Substance Use Treatment: No *Physical Exam - Vital Signs Last Vital Signs Temp Pulse Resp BP Pulse Ox 98.0 F 86 18 134/69 100 04/02/19 14:59 04/02/19 14:59 04/02/19 14:59 04/02/19 14:59 04/02/19 14:59 - Physical Exam General Appearance: No: Apparent Distress Respiratory/Chest: positive: Lungs Clear, Normal Breath Sounds. negative: Respiratory Distress Cardiovascular: positive: Regular Rhythm, Regular Rate, S1, S2. negative: Murmur Female Pelvic Exam: positive: cervical os closed, discharge (whitish d/c, no foul odor, not thick or cottage-like). negative: adnexal tenderness, vaginal bleeding Gastrointestinal/Abdominal: positive: Normal Bowel Sounds, Soft. negative: Tender, Distended, Guarding, Rebound Neurologic: positive: Alert, Normal Mood/Affect ED Treatment Course - RADIOLOGY Radiology Studies Ordered: Category Date Time Status TRANSVAGINAL US PREG [US] Stat Ultrasound 04/02/19 15:26 Ordered Medical Decision Making - Medical Decision Making 29 y/o F (hx of 2 abortions) currently around 16 weeks presents with lower abdominal/pelvic discomfort x 1 week, worse with coughing. Also endorses whitish discharge x 3 days. Was here 2 weeks for yeast infection and treated; states this discharge is not the same as the prior. Denies itching , fever, sob, cp, vomiting, urinary complaints, vaginal bleeding. LNMP 12/10. Patient is pending to get her first care; found out she was via home test and states it was confirmed at [facility]. Consider UTI; r/o ectopic; unlikely miscarriage with no bleeding Plan: UA, UCx, TVUS 04/02/19 15:31 TVUS shows IUP at 16 weeks 3 days with heart tone noted Patient given copy of ultrasound results UA negative Patient has f/u in 2 days 04/02/19 16:48 *DC/Admit/Observation/Transfer Diagnosis at time of Disposition: Qualifiers: Weeks of gestation: 16 weeks Qualified Code(s): Z3A.16 - 16 weeks gestation of - Discharge Dispostion Disposition: HOME Condition at time of disposition: Stable Decision to Admit order: No - Referrals Referrals: Katty Lund [Primary Care Provider] - - Patient Instructions Additional Instructions: Thank you for choosing [facility]. It was a pleasure taking care of you. Your urine test showed no evidence of infection Your ultrasound was normal Follow-up in 2 days with [facility] for further care of your Return to the Emergency Department if your symptoms worsen or persist, you have severe abdominal pain, vaginal bleeding or other concerning symptoms. - Post Discharge Activity
[2019-04-02 15:51] LABS: URINE APPEARANCE CLOUDY; URINE BILIRUBIN NEGATIVE (NEGATIVE); URINE COLOR YELLOW; URINE GLUCOSE (UA) NEGATIVE (NEGATIVE); URINE KETONE TRACE (NEGATIVE); URINE LEUK ESTERASE NEGATIVE (NEGATIVE); URINE NITRITE NEGATIVE (NEGATIVE); URINE PROTEIN NEGATIVE (NEGATIVE)
== END 2019-04-02 16:50 | disposition home or self-care (01) ==
LOC: JERFT 14:40
DX: O26.892 Other specified pregnancy related conditions, second trimester (principal); N89.8 Other specified noninflammatory disorders of vagina; Z3A.16 16 weeks gestation of pregnancy
CPT/HCPCS: 76801-TC; 81003; 87086; 99281-25

== ENCOUNTER 2019-09-20 03:05 | Inpatient (IN) | payer OTHER ==
[2019-09-20] MEDS ORDERED: DEXTROSE 5%-LACTATED RINGERS 500 ML IV ONE ×2 (04:30→05:30)
[2019-09-20 05:47] LABS: BASO % 0.3 % (0-2.0); EOS % 1.2 % (0-4.5); HEMATOCRIT 38.5 % (32.4-45.2); LYMPH % 24.3 % (8-40); MCH 30.5 pg (25.7-33.7); MCHC 33.8 g/dl (32.0-36.0); MEAN CELL VOLUME 90.1 fl (80-96); MEAN PLT VOLUME 8.1 fl (7.5-11.1); MONO % 8.3 % (3.8-10.2); NEUT % 65.9 % (42.8-82.8); PLATELET COUNT 294 K/MM3 (134-434); RBC 4.27 M/mm3 (3.60-5.2); RDW 13.7 % (11.6-15.6)
[2019-09-20 06:09] LABS: INR 0.9 (0.83-1.09); PROTHROMBIN TIME (PATIENT) 10.6 SEC (9.7-13.0)
[2019-09-20 06:12] LABS: ACTIVATED PTT 30.3 SECONDS (25.2-36.5)
[2019-09-20 06:14] VITALS: BMI 23.6
[2019-09-20] MEDS ORDERED: BUTORPHANOL TARTRATE 1 MG/ML VIAL IVPB ONE (06:14)
[2019-09-20] MEDS ORDERED: PROMETHAZINE HCL 25 MG/1 ML VIAL IVPUSH ONE (06:14)
[2019-09-20 06:15] LABS: BLOOD UREA NITROGEN 5.9 mg/dL (7-18); CALCIUM 9.2 mg/dL (8.5-10.1); CREATININE 0.6 mg/dL (0.55-1.3); POTASSIUM 3.6 mmol/L (3.5-5.1)
--- NOTE | 2019-09-20 06:23 | HP ---
Past Medical History - Primary Care Physician PCP:: Leigh José - Admission Chief Complaint: 29 yrs , 40.4/7 weeks by dtes & 40.6/7 weeks by sono is admitted in labor . onset LP since 1.00 AM History of Present Illness: pnc at , 2, [facility] panel: A pos, Rpr nr, Hbsag neg, Rubella immune, Quantiferon indederminate , hiv neg , gc/ct neg , pap nilm , g/c/ct neg , cf neg , sickle neg , hep c nr, , varicella immune, measles immune GCT 78 08/19/19 gbs neg , gc/ct neg, hiv neg , h/h 11.9/36.7, plt 295 History Source: Patient, Medical Record Limitations to Obtaining History: No Limitations - Past Medical History [employer]SM[employer]: No: Migraine, Seizure Cardiovascular: No: HTN Pulmonary: No: Asthma Gastrointestinal: Yes: Other (declines) Hepatobiliary: Yes: Other (declines) Reproductive: Yes: Polycystic Ovary Syndrome ...: 3 ...Para: 0 ...Term: 0 ...: 0 ...Spon : 0 ...Induced : 2 (2012, 2018) ...Multiple Gestation: 0 ...LMP: 12/10/18 ... Weeks Gestation by Dates: 40.4 ...EDC by Dates: 09/16/19 ...EDC by Sono: 09/14/19 Heme/Onc: No: Sickle Cell Trait Infectious Disease: Yes: Other (declines) Musculoskeletal: No: Bursitis, Chronic low back pain, Hemiparesis, Hemiplegia, Osteoarthritis, Paraplegia, Other Endocrine: No: [place]'s Disease, [place]'s Disease, Diabetes Insipidus, Diabetes Mellitus, Hyperparathyroidism, Hyperthyroidism, Hypothyroidism, Osteopenia, SIADH, Other - Past Surgical History Past Surgical History: Yes: Breast Biopsy (bilateral breast lumpectomy), Cystectomy (laproscopic bilateral ovarian cystectomy) Hx Myomectomy: No Hx Transabdominal Cerclage: No - Smoking History Smoking history: Never smoked Have you smoked in the past 12 months: No Aproximately how many cigarettes per day: 0 - Alcohol/Substance Use Hx Alcohol Use: No History of Substance Use: reports: None - Social History History of Recent Travel: No Home Medications - Allergies Allergies/Adverse Reactions: Allergies Allergy/AdvReac Type Severity Reaction Status Date / Time No Known Allergies Allergy Verified 09/20/19 03:38 - Home Medications Home Medications: Ambulatory Orders Vitamins (Sjr) - 1 tab PO DAILY 07/28/19 Physical Exam - Maternity Vital Signs: Vital Signs Temperature 98.2 F 09/20/19 03:44 Pulse Rate 90 09/20/19 03:44 Respiratory Rate 18 09/20/19 03:44 Blood Pressure 110/68 09/20/19 03:44 O2 Sat by Pulse Oximetry (%) Constitutional: Yes: Well Nourished, Moderate Distress Eyes: Yes: WNL HENT: Yes: WNL Neck: Yes: WNL Cardiovascular: Yes: WNL Breast(s): Yes: Other (not examined) - Abdominal Exam/OB Fundal Height: 40 Number of Fetuses: Single Presentation: Vertex Regularity: Irregular (4-5 min) Intensity: Mild/Mod Monitor Mode: External Heart Rate (range): 140 Heart Rate Location: [facility] Category: I Accelerations: Uniform Decelerations: None - Vaginal Exam/OB Vaginal Bleediing: Bloody Show Dilatation (cm): 2 Effacement (%): 70 Amniotic Membrane Status: Intact Presentation: Vertex/Position Station: 0 - Physical Exam Musculoskeletal: Yes: WNL Extremities: Yes: WNL. No: Calf Tenderness Edema: LLE: 1+, RLE: 1+ Deep Tendon Reflex Grade: Hyperactive,very brisk +4 Psychiatric: Yes: WNL, Alert, Oriented - Labs Lab Results: CBC, BMP 09/20/19 04:30 09/20/19 04:30 Problem List - Problems (1) Post term over 40 weeks Code(s): O48.0 - POST-TERM (2) Labor established Code(s): OVI0621 - Assessment/Plan 29 yrs 40.4/7 weeks gestation admitted in early labor Plan pitocin aiugmentation prn trial vaginal delivery pt refuses pitocin augmentation, she requests to go home she is post dates , I let her go home AMA instructions about labor, srom, bleeding, decrease FM given note : pt changed her mind , she stayed in the hosp she refuses any interventions to be done uc have slowed down 7-8 min apart, mild, irregular FHR 130-150 bpm reactivem cat-1 pt refuses to be checked by me, she allowed RN to exmine her, no change in vaginal exam IMP : false pains i offerrred patient BPP, if normal she can be discharged with her own risk Selected Entries 09/20/19 14:00 Temperature 98.1 F Pulse Rate 88 Blood Pressure 123/77 pt had US done 39.2 wks, Vx BPP 8/8, elham 12,4 cm , efw 8'6' +/- 1' ant placenta after returning from sono dept she agreed for pitocin augmentation , to increase 1unit/hr
[2019-09-20] MEDS ORDERED: SODIUM PHOSPHATE/NA BIPHOS 133 ML ENEMA PR ONE (06:41)
[2019-09-20] MEDS ORDERED: OXYTOCIN 30 UNITS in 0.9% NS 30 UNIT/500 ML INFUS.BAG IVPB ONE (15:50)
[2019-09-20] MEDS: DEXTROSE 5%-LACTATED RINGERS 1,000 ML IV SCH ×2 (15:55→23:45)
[2019-09-20] MEDS: OXYTOCIN 30 UNITS in 0.9% NS 30 UNIT/500 ML INFUS.BAG IVPB SCH (16:20)
--- NOTE | 2019-09-20 21:38 | PN ---
Progress Note (short form) - Note Progress Note: 9.30 PM , cx 2 cm/70 %/vx +1 station, Pr , fhr 140/150 bpm , cat-1 UC irregular 4- 5-6 min pt agrees to ititrate pitoci dose q 1/2 hr Selected Entries 09/20/19 20:00 Temperature 98.6 F Pulse Rate 93 H Blood Pressure 105/62 Problem List - Problems (1) Post term over 40 weeks Code(s): O48.0 - POST-TERM (2) Labor established Code(s): [id number] -
[2019-09-21] MEDS ORDERED: BUTORPHANOL TARTRATE 1 MG/ML VIAL ONE ×2 (05:04)
[2019-09-21] MEDS ORDERED: PROMETHAZINE HCL 25 MG/1 ML VIAL ONE (05:04)
[2019-09-21] MEDS: DEXTROSE 5%-LACTATED RINGERS 1,000 ML IV SCH (07:22)
--- NOTE | 2019-09-21 08:23 | PN ---
Progress Note (short form) - Note Progress Note: pt was given stadol 2 mg + phenrgan 25 mg iv stat at 5.15 AM pitocin at 15 ml/hr uc 2-3 min fhr 130-140 cat-1 8.15AM cx 2-3 cm/70 /mi vx +1 , os mid pose Selected Entries 09/21/19 08:00 Temperature 98.5 F Pulse Rate 76 Blood Pressure 119/58 L Imp : latent phase labor ct trial of labor Problem List - Problems (1) Post term over 40 weeks Code(s): O48.0 - POST-TERM (2) Labor established Code(s): [id number] -
--- NOTE | 2019-09-21 14:24 | PN ---
Progress Note (short form) - Note Progress Note: 12.00noon 3cm/75%/Vx+ 1 uc 1-3 min , fhr cat-1 144 pitocin 18 ml/hr pt wants to take shower pt felt she is leaking 12.59 PM nitrazine neg findings same as above Selected Entries 09/21/19 09/21/19 12:00 14:00 Temperature 98.8 F 98.1 F Pulse Rate 89 68 Blood Pressure 115/66 continue trial Problem List - Problems (1) Post term over 40 weeks Code(s): O48.0 - POST-TERM (2) Labor established Code(s): [id number] -
--- NOTE | 2019-09-21 15:08 | PN ---
Progress Note (short form) - Note Progress Note: 3.00 PM 4 cm/ 75/AROM clear small amount, , Vx +1 uc q2 min fhr 130-140 cat-1 4.20 PM IV stadol2 mg + phenrgan 25 mg stat 6.20 PM cx 6/100/mr/vx +1 to +2 / UC q2-3 min, FHR 130-140 cat-1 Selected Entries 09/21/19 18:00 Temperature 98.9 F Pulse Rate 88 Blood Pressure 125/79 7.25 PM 10cm/100%/vx+2/+3 /mr pt pushing fhr cat-1 Problem List - Problems (1) Post term over 40 weeks Code(s): O48.0 - POST-TERM (2) Labor established Code(s): [id number] -
[2019-09-21] MEDS ORDERED: PROMETHAZINE HCL 25 MG/1 ML VIAL IVPUSH ONE (16:14)
[2019-09-21] MEDS ORDERED: BUTORPHANOL TARTRATE 1 MG/ML VIAL IVPUSH ONE (16:14)
[2019-09-21] MEDS: OXYTOCIN 30 UNITS in 0.9% NS 30 UNIT/500 ML INFUS.BAG IVPB SCH (16:20)
[2019-09-21] MEDS ORDERED: OXYTOCIN 20 UNITS in 0.9% NS 20 UNIT/1,000 ML INFUS.BAG IV ONE (19:03)
[2019-09-21] MEDS ORDERED: LIDOCAINE HCL 1% PRESERVATIVE FREE - 30ML VIAL ONE (19:03)
[2019-09-21] MEDS ORDERED: BENZOCAINE 20% 57 GM BOTTLE TP PRN (20:39)
[2019-09-21] MEDS ORDERED: METHYLERGONOVINE MALEATE 0.2 MG/1 ML AMP IM PRN (20:39)
[2019-09-21] MEDS ORDERED: WITCH HAZEL 50% (TUCKS) 40 PAD/JAR PAD TP PRN (20:39)
[2019-09-21] MEDS ORDERED: BENZOCAINE 28 GM HEMORRHOIDAL OINTMENT TP PRN (20:39)
[2019-09-21] MEDS ORDERED: oxyCODONE HCL 5 MG TABLET PO PRN (20:39)
[2019-09-21] MEDS ORDERED: BISACODYL 10 MG SUPP.RECT RC PRN (20:39)
[2019-09-21] MEDS: ACETAMINOPHEN 325 MG TABLET (FP) PO PRN (20:45)
[2019-09-21] MEDS ORDERED: OXYTOCIN 20 UNITS in 0.9% NS 20 UNIT/1,000 ML INFUS.BAG IV SCH (20:45)
[2019-09-21] MEDS: IBUPROFEN 600 MG TABLET (FP) PO PRN (20:45)
--- NOTE | 2019-09-21 20:49 | PN ---
Delivery - Delivery Vaginal Delivery: No Problems, Spontaneous (, baby girl, 9/9, vx river position, shoulder delivery without problem, median episitomy was given, sutured in layers under local anesthesia .placenta & membranes delievered completely .cord blood collected, cord blood sent for cord gas. trivessel cord. sponge & needle count correct. pr exam sphincter & mucosa intact) Type of Anesthesia: Local Episiotomy/Laceration: Midline EBL (cc): 300 Delivery, Single - Stages of Labor Date 1st Stage Initiatied: 09/20/19 Time 1st Stage Initiated: 01:00 Date 2nd Stage Initiated: 09/21/19 Time 2nd Stage Initiated: 19:25 Date of Delivery: 09/21/19 Time of Delivery: 19:59 Date Placenta Delivered: 09/21/19 Time Placenta Delivered: 20:05 Placenta: Yes: Spontaneous, Uterine Exploration - Condition of Infant Weight: 7 lb 5 oz Position: Left, OA Total Hours ROM (Hrs/Mins): 5hr,5 min - 1 Minute Total Score: 9 5 Minutes Total Score: 9 - Feeding Plan Initial Plan: Elected not to breastfeed exclusively throughout hospitalization Remarks - Remarks Remarks: 29 yrs ,40.4 weeks by zack & 40.6 wks by sono admitted in early labor Prolonged latent phase of labor was noted pitocin augmentation given stadol 2mg + phenrgan 25 mg iv x2 doses were given for labor analgesia intrapartum course uneventful
[2019-09-22 08:27] LABS: BASO % 0.3 % (0-2.0); EOS % 0.2 % (0-4.5); HEMATOCRIT 33.4 % (32.4-45.2); LYMPH % 14.1 % (8-40); MEAN PLT VOLUME 7.8 fl (7.5-11.1); MONO % 9.3 % (3.8-10.2); NEUT % 76.1 % (42.8-82.8); PLATELET COUNT 238 K/MM3 (134-434); RBC 3.67 M/mm3 (3.60-5.2); RDW 13.8 % (11.6-15.6); WHITE BLOOD COUNT 16.9 K/mm3 (4.0-10.0)
[2019-09-22] MEDS: IBUPROFEN 600 MG TABLET (FP) PO PRN ×2 (08:52→16:15)
[2019-09-22] MEDS: FERROUS SO4 325 MG TABLET (FP) PO SCH ×2 (08:55→19:27)
[2019-09-22] MEDS: PRENATAL VITAMINS W/ FOLIC ACID TABLET (FP) PO SCH ×2 (08:56→10:03)
--- NOTE | 2019-09-22 11:00 | PN ---
Post Progress Note - Subjective Subjective: no c/o bleeding c/o perineal soreness c/o cramps Post Day: 1 Type of Delivery: Vital Signs: Vital Signs Temperature 98.2 F 09/22/19 05:40 Pulse Rate 100 H 09/22/19 05:40 Respiratory Rate 18 09/22/19 05:40 Blood Pressure 125/46 L 09/22/19 05:40 O2 Sat by Pulse Oximetry (%) 99 09/21/19 21:30 Breast Exam: Yes: Soft, Other (BF ). No: Engorged Uterus: Yes: Fundus Firm, Fundus below umbilicus, Non-tender Lochia: Yes: Rubra Lochia, amount: Moderate Extremities: Yes: Calves non-tender, Edema Perineum: Yes: Episiotomy (healing well ) Activity: Ambulating - Labs Labs: CBC WBC 16.9 K/mm3 (4.0-10.0) H 09/22/19 08:10 RBC 3.67 M/mm3 (3.60-5.2) 09/22/19 08:10 Hgb 11.0 GM/dL (10.7-15.3) 09/22/19 08:10 Hct 33.4 % (32.4-45.2) 09/22/19 08:10 MCV 91.0 fl (80-96) 09/22/19 08:10 MCH 30.0 pg (25.7-33.7) 09/22/19 08:10 MCHC 33.0 g/dl (32.0-36.0) 09/22/19 08:10 RDW 13.8 % (11.6-15.6) 09/22/19 08:10 Plt Count 238 K/MM3 (134-434) 09/22/19 08:10 MPV 7.8 fl (7.5-11.1) 09/22/19 08:10 Absolute Neuts (auto) 12.8 K/mm3 (1.5-8.0) H 09/22/19 08:10 Neutrophils % 76.1 % (42.8-82.8) 09/22/19 08:10 Lymphocytes % 14.1 % (8-40) D 09/22/19 08:10 Monocytes % 9.3 % (3.8-10.2) 09/22/19 08:10 Eosinophils % 0.2 % (0-4.5) D 09/22/19 08:10 Basophils % 0.3 % (0-2.0) 09/22/19 08:10 Nucleated RBC % 0 % (0-0) 09/22/19 08:10 Problem List - Problems (1) Post term over 40 weeks Code(s): O48.0 - POST-TERM (2) Labor established Code(s): WLO7683 - (3) Prolonged latent phase of labor Code(s): O63.0 - PROLONGED FIRST STAGE (OF LABOR) (4) Normal spontaneous vaginal delivery Code(s): O80 - ENCOUNTER FOR FULL-TERM UNCOMPLICATED DELIVERY (5) care and examination of lactating mother Code(s): Z39.1 - ENCOUNTER FOR CARE AND EXAMINATION OF LACTATING MOTHER Assessment/Plan stable plan ct pp care
[2019-09-22] MEDS: ACETAMINOPHEN 325 MG TABLET (FP) PO PRN (16:14)
[2019-09-22] MEDS ORDERED: SENNOSIDES/DOCUSATE COMBO (SENNA PLUS) TABLET (UD) PO PRN (22:00)
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
[2019-09-23] MEDS: PRENATAL VITAMINS W/ FOLIC ACID TABLET (FP) PO SCH (09:33)
[2019-09-23] MEDS: FERROUS SO4 325 MG TABLET (FP) PO SCH (09:34)
[2019-09-23] MEDS: ACETAMINOPHEN 325 MG TABLET (FP) PO PRN (09:42)
[2019-09-23] MEDS: IBUPROFEN 600 MG TABLET (FP) PO PRN (09:43)
[2019-09-23 10:26] VITALS: BP 130/78; PULSE 80; TEMP 98
== END 2019-09-23 15:00 | disposition home or self-care (01) | DRG 560 ==
LOC: JDEL 03:05 → JLDR 06:00 → J3W 09-21 22:34
PROVIDERS: ADMIT Obstetrics & Gynecology; ATTEND Obstetrics & Gynecology
PROC: 10E0XZZ Delivery of Products of Conception, External Approach (ICD-10-PCS; principal; 2019-09-21)
PROC: 0W8NXZZ Division of Female Perineum, External Approach (ICD-10-PCS; 2019-09-21)
DX: O48.0 Post-term pregnancy (principal); O63.0 Prolonged first stage (of labor); Z3A.40 40 weeks gestation of pregnancy; Z37.0 Single live birth
CPT/HCPCS: 36415; 36600; 59409; 76819-TC; 80048; 82803; 85025; 85610; 85730; 86593; 86850; 86900; 86901

== ENCOUNTER 2020-08-02 00:28 | Emergency (ER) | payer OTHER ==
[2020-08-02 01:03] VITALS: BP 120/76; PULSE 70; TEMP 98.1; BMI 19.5
[2020-08-02] MEDS ORDERED: FLUCONAZOLE 150 MG TABLET PO ONE ×3 (01:33→02:25)
[2020-08-02] MEDS ORDERED: AZITHROMYCIN 500 MG TABLET PO ONE (01:33)
[2020-08-02] MEDS ORDERED: cefTRIAXone SODIUM 1 GM VIAL ONE (02:16)
[2020-08-02] MEDS ORDERED: LIDOCAINE HCL 1%, 10 MG/ML (20ML VIAL) ONE (02:16)
[2020-08-02 02:20] LABS: HCG,QUALITATIVE URINE Negative
[2020-08-02] MEDS ORDERED: AZITHROMYCIN 250 MG TABLET ONE ×2 (02:21→02:25)
[2020-08-02 02:31] LABS: URINE APPEARANCE CLOUDY; URINE COLOR YELLOW; URINE GLUCOSE (UA) NEGATIVE (NEGATIVE)
[2020-08-02 02:32] LABS: URINE BILIRUBIN NEGATIVE (NEGATIVE); URINE KETONE TRACE (NEGATIVE); URINE LEUK ESTERASE MODERATE (NEGATIVE); URINE NITRITE NEGATIVE (NEGATIVE); URINE PROTEIN TRACE (NEGATIVE)
[2020-08-02 02:51] LABS: URINE RBC 120 /uL (0-23.9)
[2020-08-02 02:52] LABS: EPI CELLS 15 /uL (0-25.1); HYALINE CASTS 1 /uL (0-3.1); URINE BACTERIA 769 /uL (0-1359); URINE WBC 650 /uL (0-25.8)
== END 2020-08-02 02:57 | disposition home or self-care (01) ==
LOC: JER 00:28
DX: N72 Inflammatory disease of cervix uteri (principal); N39.0 Urinary tract infection, site not specified
CPT/HCPCS: 36415; 81003; 84703; 87086; 87491; 87591; 99284-25

== ENCOUNTER 2020-09-13 19:07 | Emergency (ER) | payer OTHER ==
[2020-09-13 19:23] VITALS: BP 117/76; PULSE 80; TEMP 99; BMI 19.8
[2020-09-13] MEDS ORDERED: predniSONE 20 MG TABLET (UD) PO ONE (19:42)
[2020-09-13] MEDS ORDERED: diphenhydrAMINE HCL 50 MG CAPSULE PO ONE (19:43)
[2020-09-13] MEDS ORDERED: predniSONE 10 MG TABLET (UD) ONE (19:43)
[2020-09-13] MEDS ORDERED: diphenhydrAMINE HCL 50 MG CAPSULE ONE (19:43)
[2020-09-13] MEDS ORDERED: predniSONE 20 MG TABLET (UD) ONE (19:44)
== END 2020-09-13 20:19 | disposition home or self-care (01) ==
LOC: FER 19:07
DX: T78.40XA Allergy, unspecified, initial encounter (principal); R21 Rash and other nonspecific skin eruption; L29.9 Pruritus, unspecified
CPT/HCPCS: 99283-25

== ENCOUNTER 2020-12-08 18:10 | Emergency (ER) | payer OTHER ==
[2020-12-08 18:17] VITALS: BP 110/73; PULSE 72; TEMP 98.4
[2020-12-08] MEDS ORDERED: IBUPROFEN 600 MG TABLET (FP) PO ONE (19:08)
[2020-12-08] MEDS ORDERED: ONDANSETRON *ODT* 4 MG TABLET SL ONE (19:08)
[2020-12-08 19:43] LABS: BASO % 0.9 % (0-2.0); EOS % 1.8 % (0-4.5); HEMOGLOBIN 12.2 GM/dL (10.7-15.3); LYMPH % 29.7 % (8-40); MCH 28.5 pg (25.7-33.7); MCHC 32.2 g/dl (32.0-36.0); MEAN CELL VOLUME 88.5 fl (80-96); MEAN PLT VOLUME 8.3 fl (7.5-11.1); MONO % 6.6 % (3.8-10.2); PLATELET COUNT 321 K/MM3 (134-434); RDW 13.7 % (11.6-15.6); WHITE BLOOD COUNT 7.4 K/mm3 (4.0-10.0)
[2020-12-08] MEDS ORDERED: ONDANSETRON *ODT* 4 MG TABLET ONE (20:02)
[2020-12-08] MEDS ORDERED: IBUPROFEN 400 MG TABLET (FP) PO ONE (20:02)
[2020-12-08 20:07] LABS: POTASSIUM 3.9 mmol/L (3.5-5.1)
[2020-12-08 20:09] LABS: ALBUMIN 3.7 g/dl (3.4-5.0); CALCIUM 8.9 mg/dL (8.5-10.1)
[2020-12-08 20:10] LABS: BLOOD UREA NITROGEN 13.4 mg/dL (7-18)
[2020-12-08 20:13] LABS: CREATININE 0.8 mg/dL (0.55-1.3)
[2020-12-08 20:14] LABS: BILIRUBIN,TOTAL 0.2 mg/dL (0.2-1); TOT PROT 7.4 g/dl (6.4-8.2)
[2020-12-08 20:56] LABS: EPI CELLS 23 /uL (0-25.1); HYALINE CASTS 1 /uL (0-3.1); URINE APPEARANCE CLEAR; URINE BACTERIA 564 /uL (0-1359); URINE BILIRUBIN NEGATIVE (NEGATIVE); URINE COLOR YELLOW; URINE GLUCOSE (UA) NEGATIVE (NEGATIVE); URINE KETONE TRACE (NEGATIVE); URINE LEUK ESTERASE TRACE (NEGATIVE); URINE NITRITE NEGATIVE (NEGATIVE); URINE PROTEIN TRACE (NEGATIVE); URINE RBC 261 /uL (0-23.9); URINE WBC 15 /uL (0-25.8)
== END 2020-12-08 20:45 | disposition left against medical advice (07) ==
LOC: JER 18:10
DX: R10.30 Lower abdominal pain, unspecified (principal)
CPT/HCPCS: 36415; 76830-TC; 80053; 81003; 84702; 85025; 86850; 86900; 86901; 87086; 87491; 87591; 99284-25; Q0162

== ENCOUNTER 2021-02-21 23:42 | Emergency (ER) | payer OTHER ==
[2021-02-22 00:20] VITALS: BP 110/74; PULSE 101; TEMP 98.5; BMI 24.1
== END 2021-02-22 04:56 | disposition home or self-care (01) ==
LOC: JER 23:42
DX: Z48.00 Encounter for change or removal of nonsurgical wound dressing (principal)
CPT/HCPCS: 99283-25